=== PATIENT | male | born 1995 | race African-American/Black ===

== ENCOUNTER 2022-02-12 08:05 | Inpatient (IN) | payer BC ==
[2022-02-12 08:29] LABS: Hemoglobin 12.6 g/dL (14.0-18.0); Mean Corpuscular HGB CONC 32.6 g/dL (32.0-36.0); Mean Corpuscular Hemoglobin 30.3 pg (27.0-31.0); Mean Corpuscular Volume 92.9 fL (78.0-98.0); Mean Platelet Volume 6.5 fL (7.4-10.4); Platelet Count 219 thou/uL (130-400); RBC Distribution Width 12.2 % (11.5-14.5); Red Blood Cell (RBC) Count 4.17 mill/uL (4.70-6.10)
[2022-02-12 08:37] LABS: INR-International Normal Ratio 1.1; PTT 26.3 sec (22.9-36.1); Prothrombin Time 14.2 sec (12.0-14.7)
[2022-02-12 08:48] LABS: Band 58 % (5-11); Eosinophils 1 % (0-10); Lymphocytes 22 % (21-51); MDiff Complete? YES; Metamyelocyte 2 % (0-0); Monocytes 9 % (0-10); Neutrophil 7 % (42-75); Platelet Morphology Comment Appears Adequate; Polychromasia SLIGHT = 2-3 cells (100X) (0-2/hpf); Reactive Lymphocytes 1 % (0-10); Reflex for Review?? YES; White Blood Cell (WBC) Count 3.6 thou/uL (4.8-10.8)
[2022-02-12 08:54] LABS: ALT (SGPT) 13 U/L (8-55); AST (SGOT) 30 U/L (5-34); Albumin 3.2 g/dL (3.5-5.0); Alkaline Phosphatase 46 U/L (40-110); Anion Gap 13 mmol/L (10-20); BUN (Urea Nitrogen) 8 mg/dL (8.9-20.6); Bilirubin, Total 1.7 mg/dL (0.2-1.2); Calc. Creatinine Clearance 0 mL/min (70-130); Calcium 7.4 mg/dL (7.8-10.44); Carbon Dioxide 23 mmol/L (22-29); Chloride 106 mmol/L (98-107); Globulin 1.9 g/dL (2.4-3.5); Glucose 110 mg/dL (70-105); Potassium 3.6 mmol/L (3.5-5.1); Protein, Total 5.1 g/dL (6.0-8.3); Sodium 138 mmol/L (136-145)
[2022-02-12] MEDS ORDERED: Fentanyl 100 MCG/2 ML VIAL ONE ×2 (08:56→18:34)
[2022-02-12] MEDS ORDERED: TETANUS AND DIPHTHERIA TOX/PF 0.5 ML DISP.SYRIN IM ONE (09:13)
[2022-02-12] MEDS ORDERED: Dextrose 50% Abboject 50 ML SYRINGE SLOW IVP PRN (09:13)
[2022-02-12] MEDS ORDERED: Dextrose 5% in Water 1,000 ML IV PRN (09:13)
[2022-02-12] MEDS ORDERED: Ventilator Sedation Protocol 1 EACH FS ONE (09:19)
[2022-02-12] MEDS ORDERED: Piperacillin/Tazobactam 3.375 GM in Sodium Chloride 0.9% 100 ML IVPB SCH ×2 (09:30→10:45)
[2022-02-12 09:32] LABS: Magnesium 1.2 mg/dL (1.6-2.6); Phosphorus 2.5 mg/dL (2.3-4.7)
[2022-02-12] MEDS ORDERED: Propofol BOLUS 1,000 MG/100 ML VIAL IV PRN (10:45)
[2022-02-12] MEDS ORDERED: Fentanyl BOLUS 250 ML IVPB PRN (10:45)
[2022-02-12] MEDS ORDERED: Lorazepam 2 MG/ML VIAL SLOW IVP PRN (10:45)
[2022-02-12] MEDS ORDERED: DISCONTINUE PREVIOUS NARCOTIC PAIN MEDICATIONS AND BENZODIAZEPINES FS SCH (10:45)
[2022-02-12] MEDS ORDERED: Morphine 2 MG/ML VIAL SLOW IVP PRN (10:45)
[2022-02-12] MEDS ORDERED: Iopamidol-370 76% 500 ML 1 ML ONE (10:57)
[2022-02-12] MEDS: Propofol 1,000 MG/100 ML VIAL IV PRN ×3 (11:39→20:04)
[2022-02-12 11:50] LABS: Bacteria/HPF None Seen HPF (None Seen); Bilirubin Negative (Negative); Blood, Urine Negative (Negative); Clarity Clear (Clear); Glucose, Urine (Dipstick) Normal (Negative); Ketone, Urine Negative (Negative); Leukocyte 75 Leu/uL (Negative); Nitrite Negative (Negative); Protein, Urine (Dipstick) 20 mg/dL (Neg-Trace); RBC/HPF 0-3 HPF (0-3); Specific Gravity, Urine 1.028 (1.002-1.036); Squamous Epithelial None Seen HPF (0-3); Urobilinogen Normal mg/dL (Less than 2)
[2022-02-12] MEDS: Magnesium 2 GM/50 ML(in water) 2 GM in Premix Bag 1 BAG IVPB SCH ×2 (11:50→12:15)
[2022-02-12] MEDS: Sodium Chloride 0.9% 1,000 ML IV SCH ×3 (11:51→20:05)
[2022-02-12 11:57] LABS: Amphetamine Not Detected (NotDetected); Barbiturates Screen Not Detected (NotDetected); Benzodiazepine Screen Not Detected (NotDetected); Cocaine Metabolite Screen Detected (NotDetected); Methadone Not Detected (NotDetected); Methamphetamine Not Detected (NotDetected); Opiate Screen Not Detected (NotDetected); Oxycodone Screen Not Detected (NotDetected); Phencyclidine (PCP) Not Detected (NotDetected); THC/Cannabinoid Screen Detected (NotDetected); Tricyclic Screen Not Detected (NotDetected)
[2022-02-12] MEDS: Potassium Chloride 20 MEQ in Premix Bag 1 BAG IVPB SCH ×2 (12:45→13:32)
[2022-02-12] MEDS: Piperacillin/Tazobactam 3.375 GM in Sodium Chloride 0.9% 100 ML IVPB SCH (16:50)
[2022-02-12] MEDS ORDERED: Propofol 1,000 MG/100 ML VIAL IV ONE (18:34)
[2022-02-12] MEDS: Famotidine/PF 20 mg/2ml Vial SLOW IVP SCH (20:04)
[2022-02-12 20:15] LABS: Mean Corpuscular HGB CONC 32.2 g/dL (32.0-36.0); Mean Corpuscular Hemoglobin 29.8 pg (27.0-31.0); Mean Corpuscular Volume 92.6 fL (78.0-98.0); Mean Platelet Volume 6.5 fL (7.4-10.4); Platelet Count 251 thou/uL (130-400); RBC Distribution Width 12.8 % (11.5-14.5); Red Blood Cell (RBC) Count 4.68 mill/uL (4.70-6.10)
[2022-02-12 20:15] LABS: Actual Bicarbonate (HCO3a) 22.1 mEq/L (22-28); Base Excess (BEa) -3.1 mEq/L (-2.0 to +3.0); CO2 Tension 40.3 mmHg (35.0-45.0); Calcium, Ionized (arterial) 1.11 mmol/L (1.12-1.30); Carboxyhemoglobin (COHb) 0.5 gm% (0.0-3.0); O2 Tension (PaO2), arterial 152.3 mmHg (80.0-100.0); Potassium - ABG Lab 4.91 mmol/L (3.70-5.30); pH, Arterial 7.36 (7.35-7.45)
[2022-02-12 20:17] LABS: ALV-art Gradient 82.525 mmHg (0-20); Puncture Site Arterial Line
[2022-02-12 20:27] LABS: Band 32 % (5-11); Lymphocytes 6 % (21-51); MDiff Complete? YES; Monocytes 4 % (0-10); Neutrophil 52 % (42-75); Platelet Morphology Comment Appears Adequate; Polychromasia SLIGHT = 2-3 cells (100X) (0-2/hpf); Reactive Lymphocytes 6 % (0-10)
[2022-02-12] MEDS ORDERED: Calcium Chloride 13.6 MEQ in Sodium Chloride 0.9% 100 ML IVPB SCH (20:30)
[2022-02-12 20:35] LABS: Anion Gap 13 mmol/L (10-20); BUN (Urea Nitrogen) 10 mg/dL (8.9-20.6); Calc. Creatinine Clearance 106 mL/min (70-130); Carbon Dioxide 20 mmol/L (22-29); Chloride 110 mmol/L (98-107); Glucose 93 mg/dL (70-105); Magnesium 2.5 mg/dL (1.6-2.6); Phosphorus 3.8 mg/dL (2.3-4.7); Potassium 5.3 mmol/L (3.5-5.1); Sodium 138 mmol/L (136-145)
[2022-02-12] MEDS ORDERED: Sodium Chloride 0.9% 1,000 ML IV SCH (21:15)
[2022-02-12] MEDS: fentaNYL Citrate-0.9 % NaCl/PF 100 ML IV SCH (22:57)
[2022-02-13] MEDS: Propofol 1,000 MG/100 ML VIAL IV PRN ×5 (00:12→21:40)
[2022-02-13] MEDS: Piperacillin/Tazobactam 3.375 GM in Sodium Chloride 0.9% 100 ML IVPB SCH ×3 (00:12→16:10)
[2022-02-13] MEDS: Sodium Chloride 0.9% 1,000 ML IV SCH ×4 (03:25→21:23)
[2022-02-13] MEDS ORDERED: Sodium Chloride 0.9% 1,000 ML IV SCH ×3 (03:30→19:45)
[2022-02-13] MEDS: fentaNYL Citrate-0.9 % NaCl/PF 100 ML IV SCH ×2 (06:57→18:51)
[2022-02-13 07:32] LABS: #Eosinphils 0.2 thou/uL (0.0-0.7); #Lymphocytes 0.9 thou/uL (1.20-3.40); #Monocytes 0.7 thou/uL (0.11-0.59); #Neutrophils 11.1 thou/uL (1.40-6.50); %Basophils 0.3 % (0.0-1.0); %Eosinophils 1.3 % (0.0-10.0); %Lymphocytes 7.2 % (21.0-51.0); %Monocytes 5.1 % (0.0-10.0); %Neutrophils 86.1 % (42.0-75.0); Hemoglobin 11.6 g/dL (14.0-18.0); Mean Corpuscular HGB CONC 31.8 g/dL (32.0-36.0); Mean Corpuscular Hemoglobin 30.5 pg (27.0-31.0); Mean Corpuscular Volume 95.9 fL (78.0-98.0); Mean Platelet Volume 6.8 fL (7.4-10.4); Platelet Count 186 thou/uL (130-400); RBC Distribution Width 12.7 % (11.5-14.5); Red Blood Cell (RBC) Count 3.81 mill/uL (4.70-6.10); White Blood Cell (WBC) Count 12.9 thou/uL (4.8-10.8)
[2022-02-13] MEDS ORDERED: PROPOFOL 20 ML ONE (07:35)
[2022-02-13] MEDS ORDERED: Midazolam HCl 2 mg/2 ml Vial ONE (07:35)
[2022-02-13] MEDS ORDERED: Fentanyl 250 MCG/5 ML VIAL ONE (07:35)
[2022-02-13 07:36] LABS: Actual Bicarbonate (HCO3a) 22.7 mEq/L (22-28); CO2 Tension 38.2 mmHg (35.0-45.0); Calcium, Ionized (arterial) 1.14 mmol/L (1.12-1.30); Carboxyhemoglobin (COHb) 0.3 gm% (0.0-3.0); Hemoglobin (Hb) 11.9 g/dL (14.0-18.0); O2 Tension (PaO2), arterial 121.2 mmHg (80.0-100.0); Potassium - ABG Lab 4.44 mmol/L (3.70-5.30); pH, Arterial 7.39 (7.35-7.45)
[2022-02-13 07:37] LABS: Phosphorus 3.1 mg/dL (2.3-4.7)
[2022-02-13 07:37] LABS: Puncture Site RRA
[2022-02-13 07:41] LABS: Anion Gap 11 mmol/L (10-20); BUN (Urea Nitrogen) 11 mg/dL (8.9-20.6); Calc. Creatinine Clearance 85 mL/min (70-130); Calcium 7.8 mg/dL (7.8-10.44); Carbon Dioxide 19 mmol/L (22-29); Chloride 112 mmol/L (98-107); Glucose 78 mg/dL (70-105); Magnesium 2.2 mg/dL (1.6-2.6); Sodium 137 mmol/L (136-145)
[2022-02-13] MEDS: Famotidine/PF 20 mg/2ml Vial SLOW IVP SCH ×2 (08:21→21:14)
[2022-02-13] MEDS ORDERED: PHENYLEPHRINE-NS 100 MCG/ML 10 ML SYRINGE ONE ×2 (09:40→11:51)
[2022-02-13] MEDS ORDERED: Rocuronium Bromide 10 MG/ML (10ML VIAL) ONE (09:40)
[2022-02-13] MEDS ORDERED: Rocuronium Bromide 50 MG/5 ML VIAL ONE (11:51)
[2022-02-13 17:03] LABS: Hemoglobin 12.2 g/dL (14.0-18.0); Mean Corpuscular HGB CONC 32.5 g/dL (32.0-36.0); Mean Corpuscular Hemoglobin 30.7 pg (27.0-31.0); Mean Corpuscular Volume 94.3 fL (78.0-98.0); Mean Platelet Volume 6.7 fL (7.4-10.4); Platelet Count 188 thou/uL (130-400); RBC Distribution Width 12.7 % (11.5-14.5); Red Blood Cell (RBC) Count 3.98 mill/uL (4.70-6.10); White Blood Cell (WBC) Count 8.8 thou/uL (4.8-10.8)
[2022-02-13 17:22] LABS: Band 33 % (5-11); Eosinophils 2 % (0-10); Lymphocytes 12 % (21-51); MDiff Complete? YES; Monocytes 4 % (0-10); Neutrophil 48 % (42-75); Platelet Morphology Comment Appears Adequate; Polychromasia SLIGHT = 2-3 cells (100X) (0-2/hpf); Reactive Lymphocytes 1 % (0-10)
[2022-02-13 17:24] LABS: Anion Gap 8 mmol/L (10-20); BUN (Urea Nitrogen) 13 mg/dL (8.9-20.6); Calc. Creatinine Clearance 93 mL/min (70-130); Calcium 7.7 mg/dL (7.8-10.44); Carbon Dioxide 20 mmol/L (22-29); Chloride 112 mmol/L (98-107); Glucose 95 mg/dL (70-105); Magnesium 1.9 mg/dL (1.6-2.6); Phosphorus 3.1 mg/dL (2.3-4.7); Potassium 4.3 mmol/L (3.5-5.1); Sodium 136 mmol/L (136-145)
[2022-02-13] MEDS ORDERED: Sodium Phosphate 15 MMOL in Sodium Chloride 0.9% 250 ML 250 ML IVPB SCH (20:20)
[2022-02-13] MEDS ORDERED: Sodium Chloride 0.45% 1,000 ML IV SCH (23:45)
[2022-02-14] MEDS: Piperacillin/Tazobactam 3.375 GM in Sodium Chloride 0.9% 100 ML IVPB SCH ×3 (01:20→16:02)
[2022-02-14] MEDS: Propofol 1,000 MG/100 ML VIAL IV PRN (03:18)
[2022-02-14] MEDS: Sodium Chloride 0.9% 1,000 ML IV SCH ×3 (03:19→16:02)
[2022-02-14 05:01] LABS: Anion Gap 10 mmol/L (10-20); BUN (Urea Nitrogen) 14 mg/dL (8.9-20.6); Calc. Creatinine Clearance 85 mL/min (70-130); Calcium 7.3 mg/dL (7.8-10.44); Carbon Dioxide 17 mmol/L (22-29); Chloride 115 mmol/L (98-107); Glucose 88 mg/dL (70-105); Magnesium 1.8 mg/dL (1.6-2.6); Potassium 4.4 mmol/L (3.5-5.1); Sodium 138 mmol/L (136-145)
[2022-02-14 05:02] LABS: Phosphorus 4.2 mg/dL (2.3-4.7)
[2022-02-14 06:48] LABS: Hemoglobin 10.2 g/dL (14.0-18.0); Mean Corpuscular HGB CONC 33.3 g/dL (32.0-36.0); Mean Corpuscular Hemoglobin 31.5 pg (27.0-31.0); Mean Corpuscular Volume 94.6 fL (78.0-98.0); Mean Platelet Volume 7.4 fL (7.4-10.4); Platelet Count 168 thou/uL (130-400); RBC Distribution Width 12.6 % (11.5-14.5); Red Blood Cell (RBC) Count 3.24 mill/uL (4.70-6.10)
[2022-02-14] MEDS ORDERED: ALBUMIN 5% 25 GM/500 ML BAG IVPB SCH (07:00)
[2022-02-14 07:05] LABS: Actual Bicarbonate (HCO3a) 18.9 mEq/L (22-28); Base Excess (BEa) -6.6 mEq/L (-2.0 to +3.0); CO2 Tension 37.5 mmHg (35.0-45.0); Calcium, Ionized (arterial) 1.04 mmol/L (1.12-1.30); Carboxyhemoglobin (COHb) 0.4 gm% (0.0-3.0); O2 Tension (PaO2), arterial 97.3 mmHg (80.0-100.0); pH, Arterial 7.32 (7.35-7.45)
[2022-02-14] MEDS ORDERED: Calcium Chloride 1 GM/10 ML Abboject SYRINGE IVP SCH (07:15)
[2022-02-14 07:30] LABS: ALV-art Gradient 141.025 mmHg (0-20); Puncture Site RRA
[2022-02-14 08:35] LABS: Band 44 % (5-11); Eosinophils 3 % (0-10); Lymphocytes 12 % (21-51); MDiff Complete? YES; Monocytes 2 % (0-10); Neutrophil 37 % (42-75); Platelet Morphology Comment Appears Adequate; Polychromasia SLIGHT = 2-3 cells (100X) (0-2/hpf); Reactive Lymphocytes 2 % (0-10)
[2022-02-14] MEDS: Famotidine/PF 20 mg/2ml Vial SLOW IVP SCH (09:21)
[2022-02-14] MEDS ORDERED: Morphine 4 MG/ML VIAL SLOW IVP PRN (13:25)
[2022-02-14] MEDS: Morphine 4 MG/ML VIAL SLOW IVP PRN ×2 (13:33→16:52)
[2022-02-14] MEDS ORDERED: diphenhydrAMINE 50 MG/ML VIAL IVP PRN (16:53)
[2022-02-14] MEDS ORDERED: diphenhydrAMINE 50 MG/ML VIAL IM PRN (16:53)
[2022-02-14] MEDS ORDERED: Promethazine HCl 25 MG/ML VIAL IM PRN (16:53)
[2022-02-14] MEDS ORDERED: HYDROmorphone 10 mg/100 ml CADD IVPB PRN (16:53)
[2022-02-14] MEDS ORDERED: Naloxone HCl 0.4 mg/ml Vial IV PRN (16:53)
[2022-02-14] MEDS ORDERED: diphenhydrAMINE 25 MG CAP PO PRN (16:53)
[2022-02-14] MEDS ORDERED: PCA Communication Order-Pharmacy FS SCH (17:00)
[2022-02-14] MEDS: Dextrose 5%-Lactated Ringers 1,000 ML IV SCH (17:24)
[2022-02-14] MEDS ORDERED: traMADol HCl 50 MG TAB PO SCH (18:00)
[2022-02-15] MEDS: Piperacillin/Tazobactam 3.375 GM in Sodium Chloride 0.9% 100 ML IVPB SCH ×3 (01:13→18:02)
[2022-02-15] MEDS: Dextrose 5%-Lactated Ringers 1,000 ML IV SCH ×3 (01:13→18:02)
[2022-02-15 09:46] LABS: Anion Gap 9 mmol/L (10-20); BUN (Urea Nitrogen) 5 mg/dL (8.9-20.6); Calc. Creatinine Clearance 165 mL/min (70-130); Carbon Dioxide 23 mmol/L (22-29); Chloride 110 mmol/L (98-107); Glucose 93 mg/dL (70-105); Magnesium 1.7 mg/dL (1.6-2.6); Potassium 3.5 mmol/L (3.5-5.1); Sodium 138 mmol/L (136-145)
[2022-02-15 09:52] LABS: Hemoglobin 10.5 g/dL (14.0-18.0); Mean Corpuscular HGB CONC 33.3 g/dL (32.0-36.0); Mean Corpuscular Hemoglobin 31.3 pg (27.0-31.0); Mean Platelet Volume 6.3 fL (7.4-10.4); Platelet Count 187 thou/uL (130-400); RBC Distribution Width 12.6 % (11.5-14.5); Red Blood Cell (RBC) Count 3.34 mill/uL (4.70-6.10)
[2022-02-15 09:53] VITALS: BMI 26.3
[2022-02-15 10:13] LABS: Phosphorus 2.4 mg/dL (2.3-4.7)
[2022-02-15 11:29] LABS: Band 35 % (5-11); Lymphocytes 7 % (21-51); MDiff Complete? YES; Metamyelocyte 1 % (0-0); Monocytes 3 % (0-10); Neutrophil 54 % (42-75); Platelet Morphology Comment Appears Adequate; Polychromasia SLIGHT = 2-3 cells (100X) (0-2/hpf)
[2022-02-15] MEDS ORDERED: Potassium Phosphate 30 MMOL in Sodium Chloride 0.9% 250 ML 250 ML IVPB SCH (16:45)
[2022-02-15] MEDS ORDERED: Magnesium Sulfate 3 GM in Sodium Chloride 0.9% 100 ML IVPB SCH (17:00)
[2022-02-15] MEDS ORDERED: Promethazine 25 MG TAB PO PRN (17:07)
[2022-02-15] MEDS ORDERED: Scopolamine 1.5 mg/72 hour Patch TD SCH (18:00)
[2022-02-15] MEDS: Ondansetron PF 4 MG/2 ML Vial IVP PRN (22:24)
[2022-02-16] MEDS: Piperacillin/Tazobactam 3.375 GM in Sodium Chloride 0.9% 100 ML IVPB SCH ×3 (00:46→17:24)
[2022-02-16] MEDS: Dextrose 5%-Lactated Ringers 1,000 ML IV SCH ×3 (00:50→17:24)
[2022-02-16 05:53] LABS: Hemoglobin 11.2 g/dL (14.0-18.0); Mean Corpuscular HGB CONC 32.3 g/dL (32.0-36.0); Mean Corpuscular Volume 92.8 fL (78.0-98.0); Mean Platelet Volume 6.2 fL (7.4-10.4); Platelet Count 206 thou/uL (130-400); RBC Distribution Width 12.6 % (11.5-14.5); Red Blood Cell (RBC) Count 3.73 mill/uL (4.70-6.10); White Blood Cell (WBC) Count 13.7 thou/uL (4.8-10.8)
[2022-02-16] MEDS: Ondansetron PF 4 MG/2 ML Vial IVP PRN (06:06)
[2022-02-16 06:27] LABS: Anion Gap 15 mmol/L (10-20); BUN (Urea Nitrogen) 7 mg/dL (8.9-20.6); Calc. Creatinine Clearance 167 mL/min (70-130); Calcium 8.6 mg/dL (7.8-10.44); Carbon Dioxide 20 mmol/L (22-29); Chloride 105 mmol/L (98-107); Glucose 121 mg/dL (70-105); Phosphorus 4.2 mg/dL (2.3-4.7); Potassium 3.5 mmol/L (3.5-5.1); Sodium 136 mmol/L (136-145)
[2022-02-16] MEDS ORDERED: Potassium Chloride 20 MEQ in Premix Bag 1 BAG IVPB SCH (06:30)
[2022-02-16 08:49] LABS: Band 14 % (5-11); Eosinophils 1 % (0-10); Lymphocytes 11 % (21-51); MDiff Complete? YES; Monocytes 6 % (0-10); Neutrophil 68 % (42-75); RBC Morphology Normal
[2022-02-16] MEDS: Enoxaparin Sodium 40 MG/0.4 ML SYRINGE SC SCH (09:34)
[2022-02-16] MEDS ORDERED: traMADol HCl 50 MG TAB PO PRN (11:08)
[2022-02-16] MEDS ORDERED: Morphine 2 MG/ML VIAL SLOW IVP PRN (11:09)
[2022-02-16] MEDS: traMADol HCl 50 MG TAB PO SCH ×3 (12:03→23:11)
[2022-02-16] MEDS: Acetaminophen 500 MG TAB PO SCH ×3 (12:03→23:11)
[2022-02-16] MEDS: Ibuprofen 200 MG TAB PO SCH ×2 (14:17→20:49)
[2022-02-17] MEDS: Dextrose 5%-Lactated Ringers 1,000 ML IV SCH (00:25)
[2022-02-17] MEDS: Piperacillin/Tazobactam 3.375 GM in Sodium Chloride 0.9% 100 ML IVPB SCH ×2 (00:25→08:47)
[2022-02-17] MEDS: Acetaminophen 500 MG TAB PO SCH ×3 (05:01→13:05)
[2022-02-17] MEDS: Ibuprofen 200 MG TAB PO SCH ×2 (05:01→06:26)
[2022-02-17] MEDS: traMADol HCl 50 MG TAB PO SCH ×3 (05:02→13:05)
[2022-02-17] MEDS: Ondansetron PF 4 MG/2 ML Vial IVP PRN (06:30)
[2022-02-17] MEDS: Enoxaparin Sodium 40 MG/0.4 ML SYRINGE SC SCH (08:47)
[2022-02-17] MEDS ORDERED: Saccharomyces boulardii 250 MG CAP PO SCH (09:00)
[2022-02-17 12:17] VITALS: BP 166/97; TEMP 98.8
== END 2022-02-17 14:45 | disposition home or self-care (01) | DRG 329 ==
LOC: ERS 08:05 → EEVIPCON 09:13 → CCU 09:13 → SURG A 02-14 18:36
PROVIDERS: ADMIT Student in an Organized Health Care Education/Training Program; ATTEND Surgery
PROC: 0DB80ZZ Excision of Small Intestine, Open Approach (ICD-10-PCS; principal; 2022-02-12)
PROC: 0D1N0Z4 Bypass Sigmoid Colon to Cutaneous, Open Approach (ICD-10-PCS; 2022-02-12)
PROC: 5A1945Z Respiratory Ventilation, 24-96 Consecutive Hours (ICD-10-PCS; 2022-02-12)
PROC: 0D9770Z Drainage of Stomach, Pylorus with Drainage Device, Via Natural or Artificial Opening (ICD-10-PCS; 2022-02-12)
PROC: 03HY32Z Insertion of Monitoring Device into Upper Artery, Percutaneous Approach (ICD-10-PCS; 2022-02-12)
DX: S36.592A Other injury of descending [left] colon, initial encounter (principal); J96.00 Acute respiratory failure, unspecified whether with hypoxia or hypercapnia; D62 Acute posthemorrhagic anemia; N17.9 Acute kidney failure, unspecified; S36.498A Other injury of other part of small intestine, initial encounter; X95.9XXA Assault by unspecified firearm discharge, initial encounter; Z20.822 Contact with and (suspected) exposure to COVID-19; F14.10 Cocaine abuse, uncomplicated; F12.10 Cannabis abuse, uncomplicated; E83.42 Hypomagnesemia; E87.5 Hyperkalemia; Z78.1 Physical restraint status
CPT/HCPCS: 36415; 36416; 36600; 71045; 74018; 74177; 80048; 80053; 80306; 81001; 82805; 83605; 83735; 84100; 85025; 85060; 85610; 85730; 86850; 86900; 86901; 94002; 94003; 96365; 96366; 96368; 96374; 96376; 99292; G0390; J1650; J2060; J2250; J2270; J2405; J2543; J2704; J3010; J3475; J3480; J3490; J7050; P9045; Q0169; Q9967; S0028

== ENCOUNTER 2022-03-03 12:14 | Outpatient (CLI) | payer BC | END 2022-03-03 12:15 | disposition home or self-care (01) | LOC: BICULT 12:14 | PROVIDERS: ATTEND Student in an Organized Health Care Education/Training Program | DX: R22.41 Localized swelling, mass and lump, right lower limb (principal) | CPT/HCPCS: 76999 ==

== ENCOUNTER 2022-09-08 10:29 | Outpatient (CLI) | payer BC | END 2022-09-08 10:30 | disposition home or self-care (01) | LOC: RAD 10:29 | PROVIDERS: ATTEND Surgery | DX: Z48.815 Encounter for surgical aftercare following surgery on the digestive system (principal); Z93.3 Colostomy status; K82.8 Other specified diseases of gallbladder | CPT/HCPCS: 74280 ==

== ENCOUNTER 2022-10-21 09:45 | Inpatient (IN) | payer BC ==
[2022-10-21 09:18] VITALS: BMI 23.1
[2022-10-24] MEDS ORDERED: Acetaminophen 500 MG TAB ONE (09:21)
[2022-10-24] MEDS ORDERED: Ketorolac Tromethamine 30 MG/ML VIAL ONE (09:21)
[2022-10-24] MEDS ORDERED: Midazolam HCl 2 mg/2 ml Vial ONE (09:35)
[2022-10-24 10:05] LABS: Anion Gap 18 mmol/L (10-20); BUN (Urea Nitrogen) 11 mg/dL (8.9-20.6); Calc. Creatinine Clearance 139 mL/min (70-130); Calcium 9.8 mg/dL (7.8-10.44); Carbon Dioxide 23 mmol/L (22-29); Chloride 102 mmol/L (98-107); Estimated GFR 120; Glucose 101 mg/dL (70-105); Potassium 3.6 mmol/L (3.5-5.1); Sodium 139 mmol/L (136-145)
[2022-10-24] MEDS ORDERED: fentaNYL PF 100 MCG/2 ML SYRINGE ONE (10:16)
[2022-10-24] MEDS ORDERED: cefOXitin 2 GM VIAL ONE (10:33)
[2022-10-24] MEDS ORDERED: Sodium Chloride 0.9% 100 ML ONE (10:33)
[2022-10-24] MEDS ORDERED: Lidocaine 1% PF 5 ML VIAL ONE (10:42)
[2022-10-24] MEDS ORDERED: Dexamethasone 20 MG/5 ML VIAL ONE (10:42)
[2022-10-24] MEDS ORDERED: Rocuronium Bromide 10 MG/ML (10ML VIAL) ONE (10:42)
[2022-10-24] MEDS ORDERED: Glycopyrrolate 0.2 MG/ML 5 ML SYRINGE ONE (10:42)
[2022-10-24] MEDS ORDERED: PROPOFOL 200 MG/20 ML VIAL ONE (10:42)
[2022-10-24] MEDS ORDERED: Ondansetron PF 4 MG/2 ML Vial ONE (10:42)
[2022-10-24] MEDS ORDERED: NEOSTIGMINE 3 MG/3 ML SYR 3 MG/3 ML SYRINGE ONE (10:42)
[2022-10-24] MEDS ORDERED: HYDROmorphone 2 MG/ML VIAL ONE (10:53)
[2022-10-24] MEDS ORDERED: Promethazine HCl 25 MG/ML VIAL IM PRN ×2 (11:42→13:50)
[2022-10-24] MEDS ORDERED: Ondansetron HCl/PF 4 MG/2 ML Vial IVP PRN (11:42)
[2022-10-24] MEDS ORDERED: HYDROmorphone 2 MG/ML VIAL SLOW IVP PRN (11:42)
[2022-10-24] MEDS ORDERED: Meperidine HCl/PF 25 MG/ML VIAL SLOW IVP PRN (11:42)
[2022-10-24] MEDS ORDERED: Bupivacaine 0.25% HCL 30 ML VIAL ONE (12:18)
[2022-10-24] MEDS ORDERED: Ondansetron PF 4 MG/2 ML Vial IVP PRN (13:46)
[2022-10-24] MEDS ORDERED: Dextrose 50% Abboject 50 ML SYRINGE SLOW IVP PRN (13:46)
[2022-10-24] MEDS ORDERED: hydrALAZINE 20 MG/ML VIAL SLOW IVP PRN (13:46)
[2022-10-24] MEDS ORDERED: Ipratropium/Albuterol 3 ML NEB NEB PRN (13:46)
[2022-10-24] MEDS ORDERED: Dextrose 5% in Water 1,000 ML IV PRN (13:46)
[2022-10-24] MEDS ORDERED: Naloxone HCl 0.4 mg/ml Vial IV PRN (13:50)
[2022-10-24] MEDS ORDERED: diphenhydrAMINE 50 MG/ML VIAL IM PRN (13:50)
[2022-10-24] MEDS ORDERED: diphenhydrAMINE 25 MG CAP PO PRN (13:50)
[2022-10-24] MEDS ORDERED: HYDROmorphone 10 mg/100 ml CADD IVPB PRN (13:50)
[2022-10-24] MEDS ORDERED: diphenhydrAMINE 50 MG/ML VIAL IVP PRN (13:50)
[2022-10-24] MEDS ORDERED: Communication Order-Pharmacy FS PRN (14:00)
[2022-10-24] MEDS ORDERED: Fentanyl 100 MCG/2 ML VIAL ONE (14:45)
[2022-10-24] MEDS ORDERED: Piperacillin/Tazobactam 3.375 GM in Sodium Chloride 0.9% 100 ML IVPB SCH (15:00)
[2022-10-24] MEDS: Sodium Chloride 0.9% 1,000 ML IV SCH (16:49)
[2022-10-24] MEDS: Famotidine/PF 20 mg/2ml Vial SLOW IVP SCH (20:43)
[2022-10-24] MEDS: Piperacillin/Tazobactam 3.375 GM in Sodium Chloride 0.9% 100 ML IVPB SCH (20:44)
[2022-10-25] MEDS ORDERED: Ipratropium/Albuterol 3 ML NEB NEB SCH (01:00)
[2022-10-25] MEDS: Piperacillin/Tazobactam 3.375 GM in Sodium Chloride 0.9% 100 ML IVPB SCH ×4 (01:08→23:13)
[2022-10-25] MEDS: Sodium Chloride 0.9% 1,000 ML IV SCH ×4 (01:13→23:17)
[2022-10-25 04:57] LABS: #Lymphocytes 0.9 thou/uL (1.20-3.40); #Monocytes 0.9 thou/uL (0.11-0.59); #Neutrophils 5.9 thou/uL (1.40-6.50); %Basophils 0.1 % (0.0-1.0); %Eosinophils 0.1 % (0.0-10.0); %Neutrophils 75.9 % (42.0-75.0); Hemoglobin 14.5 g/dL (14.0-18.0); Mean Corpuscular HGB CONC 32.4 g/dL (32.0-36.0); Mean Corpuscular Hemoglobin 29.7 pg (27.0-31.0); Mean Corpuscular Volume 91.7 fl (78.0-98.0); Mean Platelet Volume 6.8 fL (7.4-10.4); Platelet Count 257 10x3/uL (130-400); RBC Distribution Width 12.7 % (11.5-14.5); White Blood Cell (WBC) Count 7.7 10x3/uL (4.8-10.8)
[2022-10-25 05:11] LABS: Anion Gap 13 mmol/L (10-20); BUN (Urea Nitrogen) 9 mg/dL (8.9-20.6); Calc. Creatinine Clearance 117 mL/min (70-130); Calcium 8.7 mg/dL (7.8-10.44); Carbon Dioxide 24 mmol/L (22-29); Chloride 107 mmol/L (98-107); Estimated GFR 98; Glucose 114 mg/dL (70-105); Magnesium 1.7 mg/dL (1.6-2.6); Phosphorus 4.2 mg/dL (2.3-4.7); Potassium 4.3 mmol/L (3.5-5.1); Sodium 140 mmol/L (136-145)
[2022-10-25] MEDS: HYDROmorphone/PF 10 MG in Sodium Chloride 0.9% 99 ML IVPB PRN ×2 (06:37→20:26)
[2022-10-25] MEDS: Ipratropium/Albuterol 3 ML NEB NEB SCH ×3 (07:28→19:23)
[2022-10-25] MEDS: Famotidine/PF 20 mg/2ml Vial SLOW IVP SCH ×2 (08:39→20:27)
[2022-10-26] MEDS: Piperacillin/Tazobactam 3.375 GM in Sodium Chloride 0.9% 100 ML IVPB SCH ×3 (09:31→23:29)
[2022-10-26] MEDS: Sodium Chloride 0.9% 1,000 ML IV SCH ×2 (09:32→09:36)
[2022-10-26] MEDS: Famotidine/PF 20 mg/2ml Vial SLOW IVP SCH (09:32)
[2022-10-26] MEDS: Ipratropium/Albuterol 3 ML NEB NEB SCH ×3 (11:00→18:14)
[2022-10-26] MEDS ORDERED: Ibuprofen 200 MG TAB PO PRN (11:35)
[2022-10-26] MEDS ORDERED: traMADol HCl 50 MG TAB PO PRN (11:35)
[2022-10-26] MEDS: Acetaminophen 500 MG TAB PO SCH ×3 (11:48→23:29)
[2022-10-26] MEDS: traMADol HCl 50 MG TAB PO SCH ×2 (11:49→20:19)
[2022-10-26] MEDS ORDERED: Morphine 2 MG/ML VIAL SLOW IVP PRN (17:12)
[2022-10-26] MEDS: Famotidine 20 MG TAB PO SCH (20:19)
[2022-10-27] MEDS: traMADol HCl 50 MG TAB PO SCH ×4 (02:23→21:12)
[2022-10-27] MEDS: Acetaminophen 500 MG TAB PO SCH ×3 (05:09→17:39)
[2022-10-27] MEDS: Ipratropium/Albuterol 3 ML NEB NEB SCH ×2 (07:31→14:18)
[2022-10-27] MEDS: Piperacillin/Tazobactam 3.375 GM in Sodium Chloride 0.9% 100 ML IVPB SCH ×2 (08:31→15:21)
[2022-10-27] MEDS: Famotidine 20 MG TAB PO SCH ×2 (08:32→21:03)
[2022-10-27] MEDS ORDERED: Ipratropium/Albuterol 3 ML NEB NEB PRN (14:24)
[2022-10-27] MEDS: Senokot S 8.6-50 MG TAB PO SCH (21:03)
[2022-10-28] MEDS: Piperacillin/Tazobactam 3.375 GM in Sodium Chloride 0.9% 100 ML IVPB SCH ×2 (00:33→08:25)
[2022-10-28] MEDS: Acetaminophen 500 MG TAB PO SCH ×6 (00:34→23:39)
[2022-10-28] MEDS: traMADol HCl 50 MG TAB PO SCH ×5 (00:34→23:41)
[2022-10-28] MEDS: Polyethylene Glycol 3350 17 GM Packet PO SCH (08:25)
[2022-10-28] MEDS: Senokot S 8.6-50 MG TAB PO SCH ×2 (08:25→20:46)
[2022-10-28] MEDS: Famotidine 20 MG TAB PO SCH ×2 (08:25→20:46)
[2022-10-29] MEDS: Acetaminophen 500 MG TAB PO SCH (06:44)
[2022-10-29 08:49] VITALS: BP 118/68; TEMP 98.5
[2022-10-29] MEDS: Polyethylene Glycol 3350 17 GM Packet PO SCH (08:51)
[2022-10-29] MEDS: Famotidine 20 MG TAB PO SCH (08:52)
[2022-10-29] MEDS: traMADol HCl 50 MG TAB PO SCH (08:52)
[2022-10-29] MEDS: Senokot S 8.6-50 MG TAB PO SCH (08:52)
== END 2022-10-29 12:00 | disposition home or self-care (01) | DRG 331 ==
LOC: SURG A 10-24 07:48 → SJJU 10-24 16:11
PROVIDERS: ADMIT Surgery; ATTEND Surgery
PROC: 0DBM0ZZ Excision of Descending Colon, Open Approach (ICD-10-PCS; principal; 2022-10-24)
DX: Z43.3 Encounter for attention to colostomy (principal); Z20.822 Contact with and (suspected) exposure to COVID-19; Z90.49 Acquired absence of other specified parts of digestive tract
CPT/HCPCS: 36415; 36416; 80048; 83036; 83735; 84100; 85025; 94640; A4649; C1776; J0694; J1100; J1170; J1650; J1885; J2250; J2405; J2543; J2704; J3010; J3490; J7050; J7620; S0020; S0028; U0003; U0005

== ENCOUNTER 2022-10-21 10:03 | Outpatient (CLI) | payer BC ==
[2022-10-21 11:45] LABS: #Eosinphils 0.3 10x3/uL (0.0-0.5); #Monocytes 0.6 10x3/uL (0.0-1.1); #Neutrophils 1.3 10x3/uL (1.5-8.4); %Basophils 0.9 % (0.0-2.0); %Eosinophils 7.7 % (0.0-6.0); %Lymphocytes 47.7 % (18.0-47.0); %Neutrophils 29.5 % (40.0-75.0); Hemoglobin 16.1 g/dL (13.5-17.5); Mean Corpuscular HGB CONC 34.3 g/dL (32.0-36.0); Mean Corpuscular Hemoglobin 30.1 pg (27.0-33.0); Mean Platelet Volume 9.2 fl (7.4-10.4); Platelet Count 282 10x3/uL (150-450); RBC Distribution Width 14.1 % (11.5-14.5); Red Blood Cell (RBC) Count 5.34 10x6/uL (4.32-5.72); White Blood Cell (WBC) Count 4.3 10x3/uL (3.5-10.5)
[2022-10-21 14:42] LABS: Hemoglobin A1c 4.9 % (4.0-6.0)
== END 2022-10-21 10:04 | disposition home or self-care (01) ==
LOC: LABBT 10:03
PROVIDERS: ATTEND Surgery
DX: Z01.812 Encounter for preprocedural laboratory examination (principal); Z93.3 Colostomy status
CPT/HCPCS: 83036; 85025